=== PATIENT | male | born 1965 ===

== ENCOUNTER 2019-04-20 09:46 | Outpatient (CLI) | payer BC ==
--- NOTE | 2019-04-20 14:37 | Cat Scan Report ---
CT ABDOMEN AND PELVIS WITHOUT CONTRAST HISTORY: Initial staging of prostate cancer COMPARISON: Bone scan performed the same day TECHNIQUE: Axial CT images were obtained through the abdomen and pelvis without IV contrast. Sagittal and coronal reformatted images. All CT scans at this location are performed using CT dose reduction for ALARA by means of automated exposure control. FINDINGS: CT ABDOMEN: Lung Bases: Clear. Liver: No significant abnormality. Biliary: No significant abnormality. Spleen: No significant abnormality. Unenlarged. Pancreas: No significant abnormality. Adrenals: No significant abnormality. Kidneys: The right kidney and collecting system or unremarkable. 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 There appears to be ext ernal compression of the distal left ureters by left iliac adenopathy. No obvious ureteral stone. Lymphatics: There are multiple enlarged lymph nodes in the left periaortic chain, aortocaval chain, b ilateral common iliac chains and left external iliac chain. Lymph nodes range from 1-3 cm in diameter . Vasculature: No significant abnormality. Bowel/Peritoneum: No significant abnormality. No free air. No free fluid. Normal appendix. CT PELVIS: : No significant abnormality. Osseous Structures: Numerous blastic bony lesions are identified throughout the lower ribs, spine and pelvis and proximal femurs. Additional Findings: None IMPRESSION: Multiple enlarged retroperitoneal lymph nodes and numerous blastic bony lesions are identified consis tent with metastatic disease. 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 This appears to be secondary to ext rinsic compression by left iliac adenopathy. No nephrolithiasis is appreciated. Signer Name: Theodore Pugh Jr, MD Signed: 04/20/2019 2:32 PM Workstation Name: [id number]
--- NOTE | 2019-04-20 14:38 | Nuclear Medicine Report ---
NUCLEAR MEDICINE BONE SCAN, WHOLE BODY INDICATION: Initial staging of prostate cancer. TECHNIQUE: 25 mCi of Tc-99m MDP were injected IV. Whole body images were obtained. COMPARISON: CT abdomen pelvis without contrast performed the same day. FINDINGS: Skeletal Lesions: Too many to count focal areas of increased radiotracer activity are identified thro ughout the calvarium, bilateral ribs, bilateral scapula, spine, pelvis, humeri and femurs.. Soft Tissues: Normal. Kidneys: Normal, symmetric activity. Additional Findings: None. 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 Signer Name: Theodore Pugh Jr, MD Signed: 04/20/2019 2:34 PM Workstation Name: [id number]
== END 2019-04-20 09:47 | disposition home or self-care (01) ==
LOC: NM 09:46
PROVIDERS: ATTEND Urology
DX: C79.51 Secondary malignant neoplasm of bone (principal); N13.30 Unspecified hydronephrosis; C61 Malignant neoplasm of prostate
CPT/HCPCS: 74176; 78306; A9503

== ENCOUNTER 2019-09-14 09:11 | Outpatient (CLI) | payer BC ==
[2019-09-14 10:21] LABS: Blood Urea Nitrogen 19 mg/dL (9-20)
--- NOTE | 2019-09-14 12:14 | Cat Scan Report ---
CT of the chest with contrast INDICATION: Restaging of prostate carcinoma COMPARISON: None FINDINGS: No adenopathy or effusions are seen. There is no significant vascular calcification and no aneurysm. Lung windows show a few subpleural blebs but no nodules, masses or infiltrates. Bone window s show multiple areas of osteoblastic metastatic disease involving the thoracic skeleton however. CT of the abdomen shows a normal liver, spleen, pancreas, adrenal glands and right kidney. Left kidne y is slightly atrophic. No definite gallbladder or biliary tree abnormality. No fluid in the upper ab domen. In the lower abdomen near the aortic bifurcation there is left periaortic adenopathy seen on i mage #305 of series #5. This measures 1.[address] in greatest diameter. [address] of the pelvis shows left-sided internal and external iliac adenopathy measuring approximately 1.6 cm in greatest diameter on image #393. No right-sided adenopathy is seen. The adenopathy has signific antly improved since 04/20/2019 however. No new areas of adenopathy seen. Prostate is not enlarged. Ri ght inguinal hernia contains fat. 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 IMPRESSION: Interval improvement in the left retroperitoneal and pelvic adenopathy. Skeletal metastat ic disease shows slight progression. Automated exposure control was utilized to diminish radiation dose. Signer Name: Gerard Vincent MD Signed: 09/14/2019 12:10 PM Workstation Name: [id number]
--- NOTE | 2019-09-14 12:51 | Nuclear Medicine Report ---
NUCLEAR MEDICINE BONE SCAN, WHOLE BODY INDICATION: C61 MALIGNANT NEOPLASM OR PROSTATE. TECHNIQUE: 26.0 mCi of Tc-99m MDP were injected IV. Whole body images were obtained. COMPARISON: No relevant prior imaging study available. FINDINGS: Numerous hypermetabolic bony lesions are identified throughout the calvarium, spine, bilateral ribs, bilateral scapula, pelvis and bilateral proximal femurs. The overall pattern and number of metastatic lesions appear relatively stable although there is decreased intensity of uptake throughout all les ions suggestive of a positive response to therapy. IMPRESSION: Positive response to therapy is suspected since 04/20/2019 exam. Numerous bony metastasis are again i dentified although they demonstrate at least 50% decrease in radiotracer uptake/activity.. Signer Name: Theodore Pugh Jr, MD Signed: 09/14/2019 12:47 PM Workstation Name: [id number]
== END 2019-09-14 09:12 | disposition home or self-care (01) ==
LOC: NM 09:11
PROVIDERS: ATTEND Internal Medicine Hematology & Oncology
DX: K40.90 Unilateral inguinal hernia, without obstruction or gangrene, not specified as recurrent (principal); J43.8 Other emphysema; R59.9 Enlarged lymph nodes, unspecified; M89.8X9 Other specified disorders of bone, unspecified site
CPT/HCPCS: 36415; 71260; 74177; 78306; 82565; 84520; A9503; Q9967